=== PATIENT | female | born 1955 | race Caucasian/White ===

== ENCOUNTER 2017-05-23 06:22 | Day surgery (SDC) | payer BC ==
[2017-05-17 12:11] LABS: HEMATOCRIT 39.1 % (36.0-48.0); HEMOGLOBIN 13.1 g/dL (12.0-16.0)
[2017-05-17 12:16] LABS: BUN (BLOOD UREA NITROGEN) 16 MG/DL (6-23); CALCIUM, SERUM 10.2 MG/DL (8.5-10.4); CHLORIDE, SERUM 104 MMOL/L (96-112); CO2 (CARBON DIOXIDE) 29 MMOL/L (24-34); CREATININE 0.93 MG/DL (0.55-1.02); GFR AFRICAN AMERICAN 77 ML/MIN (>=60); GFR NON AFRICAN AMERICAN 66 ML/MIN (>=60); GLUCOSE, SERUM 91 MG/DL (60-99); POTASSIUM, SERUM 3.7 MMOL/L (3.5-5.3); SODIUM, SERUM 139 MMOL/L (135-148)
[~2017-05-23] VITALS: Ht 168.9 cm; Wt 71.4 kg
--- NOTE | ~2017-05-23 | OP ---
Record Of Operation [facility] [address] [place]. [address] NAME: ALESHIA SIERRA : 55 STATUS : [facility]#: [id number] AGE: 61 ADM/REG DATE : 05/23/17 MR#: [id number] REPORT SERV DATE: 05/24/17 DICTATED BY: YANA ROBLEDO DATE: 05/24/17 REPORT STATUS : Draft TRANSCRIBED BY: AMANDA DATE: 05/24/17 DATE OF PROCEDURE: 05/23/2017 PREOPERATIVE DIAGNOSIS: Basal cell carcinoma of left nasal sidewall. POSTOPERATIVE DIAGNOSIS: Basal cell carcinoma of left nasal sidewall. PROCEDURE: 1. Excision of basal cell carcinoma of left nasal sidewall, 1 cm x 0.8 cm. 2. Complex closure involving cheek advancement flap with closure totaling 2 cm in length. 3. Excision of left neck lesion, 0.7 mm in greatest diameter, with simple closure of 0.7 cm in length. ESTIMATED BLOOD LOSS: 2 mL. IV FLUIDS: 1250 mL. DEPUTY COMMISSIONER: Karime. COMPLICATIONS: None. SPECIMENS: Left nasal sidewall BCC, which came back with negative margins after the first frozen section analysis. INDICATION FOR PROCEDURE: This is a 61-year-old female, who has a long-standing lesion on the left side of her nose. She had it biopsied by my nurse practitioner and subsequently came back as basal cell carcinoma. Because of the large size of it and the location, it was deemed necessary to perform this as an outpatient surgical removal with possible reconstruction. The risks including, but not limited to, bleeding, infection, scarring, wound healing issues especially since she is a current everyday smoker, blood clots, PE, DVT, etc., were described to her in the preoperative setting, and informed consent was obtained. She agrees to proceed as outlined today. PROCEDURE NOTE: The patient was identified in the preoperative holding area where SCDs and antibiotics have been initiated. This site on the left nasal sidewall was marked and she was transferred to the operating room where she was placed supine on the operating room table with all dependent areas adequately padded. After smooth induction of general endotracheal anesthesia, the face and neck area for possible skin graft were prepped and draped in standard surgical fashion. Lacri-Lube was instilled into the area and approximately 2.5 mL of local anesthetic was instilled into the area including infraorbital nerve block on the left side. The lesion was marked and was noted to be 1 cm x 0.8 cm with the margins added onto it. After approximately 7 minutes of local anesthetic setting there, a full-thickness incision was made with a 15-C scalpel down to the level of the underlying subcutaneous and muscle tissue. The specimen was marked with the suture at 12 o'clock position and passed off the table for frozen section analysis. In addition, she had changing what looked to be a mole or nevus on the left neck, which was excised in an Record Of Operation [address] [place]. [address] NAME: ALESHIA SIERRA : 55 STATUS : [facility]#: [id number] AGE: 61 ADM/REG DATE : 05/23/17 MR#: [id number] REPORT SERV DATE: 05/24/17 DICTATED BY: YANA ROBLEDO DATE: 05/24/17 REPORT STATUS : Draft TRANSCRIBED BY: AMANDA DATE: 05/24/17 elliptical fashion and sent for routine specimen evaluation. This excision was 7 mm in length on closure. Eventually, we heard back from the pathologist and the negative margins were obtained peripherally and deep on the specimen. Therefore, the site was irrigated and the circumferential tissue including that of the nasal dorsum of the cheek and lower eyelid area were raised for approximately 2 cm peripherally using blunt dissection. Hemostasis was controlled with electrocautery. I performed a sliding cheek advancement flap of the excess malar area into the defect. This was anchored with pincushion suture centrally consisting of 4-0 Monocryl interrupted sutures. The excess dog ears were then trimmed off in a superior and inferior fashion so that the final closure resulted in a vertical incision line on the junction of the nasal sidewall and the cheek. The additional interrupted 4-0 Monocryl sutures were placed followed by interrupted 6-0 Prolene sutures in a gentle mattress-style fashion to help reuben the skin. Antibiotic ointment and bandage were placed after cleansing the site. For closure of the neck, excisional biopsy site, three interrupted 6-0 Prolene sutures were placed as well as antibiotic and a bandage. The patient tolerated the procedure well without any sign of complication. She was awakened, extubated, and transported to the postanesthesia care unit where she was recovered without any sign of difficulties. The sponge and instrument counts were correct and verified at the end of the case. VASYL/AMANDA Yana Robledo MD / [id number] CC: MD Mandi Encarnacion M.D.
[~2017-05-23 06:22] MED LIST: AMIT100 PO; CALTRA600D PO; ENDOCET1 TAB PO; HCTZ25B PO; LEVOTHYROXIN88 MCG PO; LIPITOR40 PO; MULTIPLE VIT PO
== END 2017-05-23 11:54 | disposition home or self-care (01) ==
LOC: SDC 06:22 → MSC 07:45 → SDC 11:54
PROVIDERS: Plastic Surgery
PROC: 0KB10ZZ Excision of Facial Muscle, Open Approach (ICD-10-PCS; 2017-05-23)
PROC: 0HB4XZZ Excision of Neck Skin, External Approach (ICD-10-PCS; 2017-05-23)
PROC: 09BK0ZX Excision of Nasal Mucosa and Soft Tissue, Open Approach, Diagnostic (ICD-10-PCS; principal; 2017-05-23 07:45)
DX: C44.91 Basal cell carcinoma of skin, unspecified (principal); L82.1 Other seborrheic keratosis; I10 Essential (primary) hypertension; E78.00 Pure hypercholesterolemia, unspecified; E03.9 Hypothyroidism, unspecified; F32.9 Major depressive disorder, single episode, unspecified; M19.90 Unspecified osteoarthritis, unspecified site; F17.210 Nicotine dependence, cigarettes, uncomplicated; Z98.890 Other specified postprocedural states; Z79.899 Other long term (current) drug therapy
CPT/HCPCS: 80048; 85014; 85018; 88305; 88331; 93005; A9270-GY; J0690; J2250; J2370; J2405; J2710; J3010